=== PATIENT | male | born 1950 | race African-American/Black ===

== ENCOUNTER 2020-12-20 11:58 | Day surgery (SDC) | payer OTHER ==
--- NOTE | 2020-12-17 12:49 | RAD REPORT ---
EXAM DESCRIPTION: RAD - Chest Pa And Lat (2 Views) - 12/17/2020 12:40 pm CLINICAL HISTORY: preop, pending heart catheterization COMPARISON: None TECHNIQUE: Frontal and lateral views of the chest were obtained. FINDINGS: The lungs are normal volume. Lateral view has motion degradation. No mass or consolidation s seen. Interstitial pattern is mildly prominent with the baseline for the patient unknown. Upper no rmal to mild cardiomegaly noted. Vascular engorgement within normal limits. No pleural effusion or pn eumothorax seen. No acute bony finding noted. No aortic abnormality. IMPRESSION: No mass, consolidation or acute cardiopulmonary finding Mild prominence of the interstitial pattern is most likely baseline given the absence of any acute sy mptoms.
[2020-12-17 13:34] LABS: Absolute Lymphocytes (CBC) 2.2 K/uL (0.7-4.9); Basophils % 0.5 % (0-1.3); Hematocrit 43.8 % (39.6-49.0); Lymphocytes % 28.7 % (15.3-44.8); MPV 9.9 fL (7.6-11.3)
[2020-12-17 13:38] LABS: Protime INR 1.05
[2020-12-17 13:41] LABS: Potassium 3.8 mmol/L (3.5-5.1)
--- NOTE | 2020-12-18 11:21 | EKG ---
Test Date: 2020-12-17 Test Time: 11:27:02 Poured Concrete Wall Technician: TG MEASUREMENT RESULTS: Intervals: Rate: 57 [place]: 138 QRSD: 90 QT: 466 QTc: 453 [place]: P: 26 [place]: 138 QRS: 28 T: -5 INTERPRETIVE STATEMENTS: Sinus bradycardia with sinus arrhythmia Cannot rule out Anterior infarct, age undetermined Abnormal ECG Compared to ECG 05/26/2015 14:41:39 Myocardial infarct finding now present Electronically Signed On 12-18-20 11:17:21 CDT by [place]
[2020-12-20] MEDS ORDERED: NA CHLORIDE 0.9% 500 ML ONE (12:23)
[2020-12-20 12:50] VITALS: TEMP 97.4
[2020-12-20] MEDS ORDERED: HEPA 1000U/500MLS 2,000 UNIT/1,000 ML BAG IV ONE (13:14)
[2020-12-20] MEDS ORDERED: HEPARIN 5000 UNIT/ML 1 ML VIAL ONE (13:14)
[2020-12-20] MEDS ORDERED: FENTANYL CITR 100 MCG/2 ML ONE (13:15)
[2020-12-20] MEDS ORDERED: MIDAZOLAM HCL 2 MG/2 ML INJ ONE (13:15)
[2020-12-20] MEDS ORDERED: HEPARIN 10,000 UNIT/10 ML VIAL IV ONE (13:16)
[2020-12-20] MEDS ORDERED: VERAPAMIL HCL 10 MG/4 ML VIAL IV ONE (13:16)
[2020-12-20] MEDS ORDERED: ATROPINE SULF 1 MG/10 ML SYR IV ONE (13:17)
[2020-12-20 16:01] VITALS: O2SAT 98
[2020-12-20 16:02] VITALS: BP 160/92
--- NOTE | 2020-12-20 23:08 | OP ---
Date of Procedure: 12/20/2020 Surgeon: THEODORA JAMES Procedure Performed: Selective coronary angiogram. Access: Right radial artery 6-Turkmen closed with TR band. Indication: Abnormal stress test with chest pain. Complications: None. Bleeding: Less than 10 mL. Description Of Procedure: After risks, benefits, and alternatives were explained, the patient agreed to the procedure and signed informed consent. The patient was brought to the cardiac catheterizatio n laboratory, prepped and draped in usual sterile fashion. Then, we accessed right radial artery usi ng pediatric micropuncture kit, placed a 6-Turkmen slender sheath and took a 5-Turkmen [place] 4.0 cathet er into the aortic root over a J-wire, engaged left main and right coronary artery, then took standar d views and then removed the catheter and sheath and placed TR band with good hemostasis. Findings: 1.Left main, long, large, normal. 2.LAD, large vessel and normal with diagonals have luminal irregularities. 3.Left circumflex is a medium size vessel with no significant disease. 4.RCA, large dominant with luminal irregularities. Conclusion: No significant coronary artery disease. Recommendation: Medical management. SR/MODL Voice ID: [id number] Report ID: [id number]
== END 2020-12-20 16:04 | disposition home or self-care (01) ==
LOC: CCL 11:58
PROVIDERS: ATTEND Internal Medicine
DX: R94.39 Abnormal result of other cardiovascular function study (principal); R07.9 Chest pain, unspecified; I10 Essential (primary) hypertension; R42 Dizziness and giddiness; E78.5 Hyperlipidemia, unspecified; E11.9 Type 2 diabetes mellitus without complications; Z87.891 Personal history of nicotine dependence; Z79.02 Long term (current) use of antithrombotics/antiplatelets; Z20.822 Contact with and (suspected) exposure to COVID-19; Z82.49 Family history of ischemic heart disease and other diseases of the circulatory system
CPT/HCPCS: 93005; 85025; 80048; 36415; 85610; 82947; 85730; 71046; 93454; U0002; C1893; J1644 ×2; J2250; J3010; J7040

== ENCOUNTER 2022-06-04 19:20 | Emergency (ER) | payer OTHER ==
[2022-06-04] MEDS ORDERED: HYDROCODONE/APAP 7.5/325 MG TAB ONE (20:09)
--- NOTE | 2022-06-04 20:55 | RAD REPORT ---
EXAM DESCRIPTION: RAD - Hand Right 3 View - 06/04/2022 8:47 pm CLINICAL HISTORY: laceration of middle finger COMPARISON: No comparisons FINDINGS: Soft tissue swelling affects the third finger. No fracture or radiopaque foreign body seen .
[2022-06-04] MEDS ORDERED: LIDOCAINE 1% MPF 5 ML VIAL ONE (21:52)
--- NOTE | 2022-06-04 22:37 | ER ---
Nurse's Notes [facility] Name: Kevin Aparicio Age: 72 yrs Sex: Male : 1950 Arrival Date: 06/04/2022 Time: 19:30 Bed Treatment Private MD: Diagnosis: Laceration without foreign body of finger without damage to nail-right middle finger Presentation: 06/04 19:33 Chief complaint: Patient states: Laceration to right middle finger - cut on garage ld1 door. Coronavirus screen: At this time, the client does not indicate any symptoms associated with coronavirus-19. Ebola Screen: No symptoms or risks identified at this time. Initial Sepsis Screen: Does the patient meet any 2 criteria? No. Patient's initial sepsis screen is negative. Does the patient have a suspected source of infection? No. Patient's initial sepsis screen is negative. Risk Assessment: Do you want to hurt yourself or someone else? Patient reports no desire to harm self or others. Onset of symptoms was June 04, 2022. 19:33 Method Of Arrival: Ambulatory ld1 19:33 Acuity: MARCIA 3 ld1 Triage Assessment: 19:30 General: Appears in no apparent distress. comfortable, Behavior is calm, cooperative, ld1 appropriate for age. Pain: Denies pain. EENT: No signs and/or symptoms were reported regarding the EENT system. Neuro: Level of Consciousness is awake, alert, obeys commands, Oriented to person, place, time, situation. Cardiovascular: Capillary refill < 3 seconds Patient's skin is warm and dry. Respiratory: Airway is patent Respiratory effort is even, unlabored. GI: Abdomen is round non-distended. : No signs and/or symptoms were reported regarding the genitourinary system. Derm: No signs and/or symptoms reported regarding the dermatologic system. Musculoskeletal: No signs and/or symptoms reported regarding the musculoskeletal system. Injury Description: Laceration sustained to palmar aspect of distal phalanx of right middle finger and palmar aspect of middle phalanx of right middle finger. Historical: - Allergies: 19:30 No Known Allergies; ld1 - Home Meds: 19:30 hydralazine 10 mg Oral tab 1 tab 2 times per day [Active]; carvedilol 6.25 mg oral tab ld1 1 tab 2 times per day [Active]; losartan 50 mg oral tab 1 tab 2 times per day [Active]; - PMHx: 19:30 Diabetes mellitus; Hypertensive disorder; ld1 - PSHx: 19:30 None; ld1 - Immunization history:: Adult Immunizations up to date, Client reports receiving the 2nd dose of the Covid vaccine. - Social history:: Smoking status: Patient denies any tobacco usage or history of. Patient uses alcohol, occasionally. Screenin:17 Abuse screen: Denies threats or abuse. Abuse screen: Denies threats or abuse. em6 Nutritional screening: No deficits noted. Tuberculosis screening: No symptoms or risk factors identified. Fall Risk Total Luu Fall Scale indicates No Risk (0-24 pts). Assessment: 19:50 Reassessment: see triage for assessment. em6 20:50 Reassessment: Patient appears in no apparent distress at this time. No changes from em6 previously documented assessment. Patient and/or family updated on plan of care and expected duration. Pain level reassessed. Patient is alert, oriented x 3, equal unlabored respirations, skin warm/dry/pink. 21:50 Reassessment: Patient appears in no apparent distress at this time. No changes from em6 previously documented assessment. Patient and/or family updated on plan of care and expected duration. Pain level reassessed. Patient is alert, oriented x 3, equal unlabored respirations, skin warm/dry/pink. Vital Signs: 19:30 BP 205 / 79; Pulse 51; Resp 18; Temp 97.6; Pulse Ox 98% on R/A; Weight 108.86 kg; ld1 Height 5 ft. 9 in. (175.26 cm); Pain 0/10; 20:17 BP 148 / 75; Pulse 50; Resp 16; Pulse Ox 100% on R/A; em6 22:40 BP 165 / 77; Pulse 50; Resp 16; Pulse Ox 100% on R/A; em6 19:30 Body Mass Index 35.44 (108.86 kg, 175.26 cm) ld1 ED Course: 19:30 Patient arrived in ED. bp1 19:33 Triage completed. ld1 19:42 Yury Bravo PA is PHCP. cp 19:42 Flor Yeung MD is Attending Physician. cp 19:54 Cathy Echols, DONITA is Primary Nurse. kd3 20:01 Wendy Larios, RN is Primary Nurse. em6 20:17 Arm band placed on. em6 20:17 Bed in low position. Call light in reach. Pulse ox on. NIBP on. Warm blanket given. em6 20:49 XRAY Hand RIGHT 3 View In Process Unspecified. EDMS 22:51 No provider procedures requiring assistance completed. Patient did not have IV access em6 during this emergency room visit. Administered Medications: 20:16 Not Given (Patient Refused): Hydrocodone-Acetaminophen (7.5 mg-325 mg) 1 tabs PO once em6 22:20 Drug: Lidocaine (1 %) 5 ml {Note: administered by yury bravo .} Volume: 5 ml; Route: em6 Infiltration; 22:50 Follow up: Response: No adverse reaction em6 Medication: 22:32 VIS not applicable for this client. em6 Outcome: 22:37 Discharge ordered by MD. cp 22:51 Discharged to home ambulatory. em6 22:51 Condition: stable 22:51 Discharge instructions given to patient, Instructed on discharge instructions, follow up and referral plans. wound care, Demonstrated understanding of instructions, follow-up care, wound care. 22:52 Patient left the ED. em6 Signatures: Dispatcher [employer] EDMS Yury Bravo PA PA cp [place], Brittany bp1 Dibbern, Lauren, RN RN ld1 Cathy Echols RN RN kd3 Wendy Larios, RN RN em6 Corrections: (The following items were deleted from the chart) 19:32 19:30 Allergies: Demerol; ld1 ld1
--- NOTE | 2022-06-04 22:38 | EDPHYS ---
Physician Documentation [facility] Name: Kevin Aparicio Age: 72 yrs Sex: Male : 1950 Arrival Date: 06/04/2022 Time: 19:30 Bed Treatment Private MD: ED Physician Flor Yeung HPI: 06/04 20:00 This 72 yrs old Black Male presents to ER via Ambulatory with complaints of Laceration, cp - finger. 20:00 The patient or guardian reports a laceration, clean. The complaints affect the mahmood cp side distal phalanx right middle finger. Context: The problem was sustained at home, sharp edge of garage door. 20:00 Onset: The symptoms/episode began/occurred just prior to arrival. Associated signs and cp symptoms: Pertinent negatives: cyanosis distally, decreased sensation distally, numbness distally. Severity of symptoms: in the emergency department the symptoms are unchanged, despite home interventions. Historical: - Allergies: 19:30 No Known Allergies; ld1 - Home Meds: 19:30 hydralazine 10 mg Oral tab 1 tab 2 times per day [Active]; carvedilol 6.25 mg oral tab ld1 1 tab 2 times per day [Active]; losartan 50 mg oral tab 1 tab 2 times per day [Active]; - PMHx: 19:30 Diabetes mellitus; Hypertensive disorder; ld1 - PSHx: 19:30 None; ld1 - Immunization history:: Adult Immunizations up to date, Client reports receiving the 2nd dose of the Covid vaccine. - Social history:: Smoking status: Patient denies any tobacco usage or history of. Patient uses alcohol, occasionally. ROS: 20:05 MS/extremity: Positive for laceration, pain, of the mahmood side distal phalanx right cp middle finger, Negative for decreased range of motion. 20:05 Constitutional: Negative for body aches, chills, fever. cp 20:05 All other systems are negative. Exam: 20:10 Constitutional: The patient appears in no acute distress, alert, awake, non-toxic, well cp developed, well nourished. 20:10 Musculoskeletal/extremity: Extremities: grossly normal except: noted in the palmar cp aspect of distal phalanx of right middle finger: laceration, There is no evidence of decreased ROM, ROM: full active range of motion, in the right middle finger, Perfusion: the extremity is normally perfused throughout, with brisk capillary refill, the right middle finger Sensation intact. Vital Signs: 19:30 BP 205 / 79; Pulse 51; Resp 18; Temp 97.6; Pulse Ox 98% on R/A; Weight 108.86 kg; ld1 Height 5 ft. 9 in. (175.26 cm); Pain 0/10; 20:17 BP 148 / 75; Pulse 50; Resp 16; Pulse Ox 100% on R/A; em6 22:40 BP 165 / 77; Pulse 50; Resp 16; Pulse Ox 100% on R/A; em6 19:30 Body Mass Index 35.44 (108.86 kg, 175.26 cm) ld1 Laceration: 22:30 Wound Repair of 2.5cm ( 1.0in ) subcutaneous laceration to palmar aspect of distal cp phalanx of right middle finger. Linear shaped.. Distal neuro/vascular/tendon intact. Anesthesia: Wound infiltrated with 2 mls of 1% lidocaine. Wound prep: Moderate cleansing by me, Wound irrigation by me. Skin closed with 5 4-0 Prolene using interrupted sutures and sterile technique. Dressed with Bacitracin, 4x4's. Patient tolerated well. MDM: 19:43 Patient medically screened. cp 22:37 Data reviewed: vital signs, nurses notes, radiologic studies, plain films. cp 22:37 Differential diagnosis: dislocation, open fracture, contusion, simple laceration. Test cp interpretation: by ED physician or midlevel provider: plain radiologic studies. Counseling: I had a detailed discussion with the patient and/or guardian regarding: the historical points, exam findings, and any diagnostic results supporting the discharge/admit diagnosis, radiology results, the need for outpatient follow up, a family practitioner, to return to the emergency department if symptoms worsen or persist or if there are any questions or concerns that arise at home. Response to treatment: the patient's symptoms have markedly improved after treatment, and as a result, I will discharge patient. 06/04 19:55 Order name: XRAY Hand RIGHT 3 View; Complete Time: 22:36 cp 06/04 22:36 Interpretation: Report reviewed. cp 06/04 21:46 Order name: Dressing - Wound; Complete Time: 21:56 cp 06/04 21:46 Order name: Gloves, Sterile; Complete Time: 21:56 cp 06/04 21:46 Order name: Setup Suture Tray; Complete Time: 21:56 cp 06/04 21:46 Order name: Wound Care: please clean and irrigate; Complete Time: 21:58 cp 06/04 22:36 Order name: Wound dressing; Complete Time: 22:49 cp Administered Medications: 20:16 Not Given (Patient Refused): Hydrocodone-Acetaminophen (7.5 mg-325 mg) 1 tabs PO once em6 22:20 Drug: Lidocaine (1 %) 5 ml {Note: administered by yury bravo .} Volume: 5 ml; Route: em6 Infiltration; 22:50 Follow up: Response: No adverse reaction em6 Disposition: 06/05 21:14 STAFF ATTESTATION STATEMENT: I was immediately available onsite in the emergency sd2 department for consultation in the care of this patient. I did not see or examine this patient. Flor Yeung MD. Disposition Summary: 06/04/22 22:37 Discharge Ordered Location: Home cp Problem: new cp Symptoms: have improved cp Condition: Stable cp Diagnosis - Laceration without foreign body of finger without damage to nail - right middle cp finger Followup: cp - With: Private Physician - When: 10 - 14 days - Reason: Staple/Suture removal Discharge Instructions: - Discharge Summary Sheet cp - Laceration Care, Adult cp - Wound Care, Adult cp Forms: - Medication Reconciliation Form cp - Thank You Letter cp - Antibiotic Education cp - Prescription Opioid Use cp Signatures: Dispatcher [employer] EDMS Yury Bravo PA PA cp Magnolia Marr RN RN ld1 Flor Yeung MD MD sd2 Wendy Larios RN RN em6 Corrections: (The following items were deleted from the chart) 06/04 19:32 19:30 Allergies: Demerol; amy1 ld1 06/05 21:20 06/04 22:00 Wound Repair of 2.5cm ( 1.0in ) subcutaneous laceration to palmar aspect of cp distal phalanx of right middle finger. Linear shaped.. Distal neuro/vascular/tendon intact. Anesthesia: Wound infiltrated with 2 mls of 1% lidocaine. Wound prep: Moderate cleansing by me, Wound irrigation by me. Skin closed with 5 4-0 Prolene using interrupted sutures and sterile technique. Dressed with Bacitracin, 4x4's. Patient tolerated well. cp
[2022-06-04 22:57] VITALS: TEMP 97.6
[2022-06-04 22:59] VITALS: O2SAT 100
[2022-06-04 23:00] VITALS: BP 165/77
== END 2022-06-04 22:52 | disposition home or self-care (01) ==
LOC: ER 19:20
PROC: 0JQJ0ZZ Repair Right Hand Subcutaneous Tissue and Fascia, Open Approach (ICD-10-PCS; principal; 2022-06-04)
DX: S61.212A Laceration without foreign body of right middle finger without damage to nail, initial encounter (principal); E11.9 Type 2 diabetes mellitus without complications; I10 Essential (primary) hypertension
CPT/HCPCS: 73130; 99283; 12001; J2001